=== PATIENT | female | born 1990 | race Caucasian/White ===

== ENCOUNTER 2017-09-06 16:43 | Emergency (ER) | payer OTHER ==
[2017-09-06 17:21] VITALS: TEMP 99.1
[2017-09-06] MEDS ORDERED: KETOROLAC 30 MG/1 ML SDV IVP ONE (18:37)
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
[2017-09-06] MEDS ORDERED: IBUPROFEN 600 MG TAB PO ONE (19:09)
[2017-09-06] MEDS ORDERED: OXYCODONE/APAP 5/325MG PREPACK#4 BTL TAKEHOME ONE (19:34)
[2017-09-06 19:50] VITALS: BP 164/94; PULSE 91; RESP 18; O2SAT 97
== END 2017-09-06 19:50 | disposition home or self-care (01) ==
DX: S32.009A Unspecified fracture of unspecified lumbar vertebra, initial encounter for closed fracture (principal); J45.909 Unspecified asthma, uncomplicated; X50.9XXA Other and unspecified overexertion or strenuous movements or postures, initial encounter; Y93.89 Activity, other specified